=== PATIENT | male | born 1980 | race Caucasian/White ===

== ENCOUNTER 2017-05-04 19:41 | Emergency (ER) | payer MEDICAID ==
[~2017-05-04] VITALS: Ht 188 cm; Wt 95.3 kg
[~2017-05-04 19:41] MED LIST: ALBUTEROL-200 PUFFS/ IH; AZITHROMYC200 MG/5 M PO; NOMEDS XX; NORCO 325 MG-51 TAB PO; PREDNISONE 20MG20 MG PO; TAMIFLU 75MG CA75 MG PO; VALIUM 5MG TABLE5 MG PO
--- OUTSIDE RECORDS SUMMARY | 2017-05-04 19:47 | External Medical Summary Rpt | CCD ---
Author Author , TODD BROOKS Address Unknown Phone [email or web address] Providers Care Endoscopy Specialty Technician Name Role Phone CANDICE, CANDICE Unavailable Unavailable ELUVATHINGAL, Unavailable Unavailable ELUVATHINGAL SANTANA, SANTANA Unavailable Unavailable MERNA JESSE, MERNA Unavailable Unavailable [facility] Un[facility], Unavailable Unavailable [facility] MIRANDA, MIRANDA Unavailable Unavailable COWART, COWART Unavailable Unavailable MOHSEN, MOHSEN Unavailable Unavailable [facility] Un[facility] [place] [facility] [place] Unavailable Unavailable [facility], [facility], [facility], [facility] Purpose Continuity of Care Document - 05-02-2015 through 2016 Problems Code Diagnosis DOS Provider Status [id number] UNSPECIFIED 12-19-2016 [place] [facility] [place] [facility] PHY R001 BRADYCARDIA 12-19-2016 [facility] [place] PHY R002 PALPITATION 12-19-2016 [facility] PHY R079 CHEST PAIN 12-19-2016 [facility] PHY R110 NAUSEA 12-19-2016 [facility] E785 HYPERLIPIDE 12-18-2016 [facility], [facility] G4733 OBSTRUCTIVE 12-18-2016 [facility], PEDIATRIC [facility] [id number] UNSPECIFIED 12-18-2016 [facility] R0789 OTHER CHEST 12-18-2016 [facility] PAIN [facility], [facility] Z8249 FAMILY HX 12-18-2016 [facility] ISCHEMIC [facility] HRT DZ [facility], CIRC [facility] SYSTEM [id number] PERSONAL 12-18-2016 [facility], DEPENDENCE [facility] Z880 ALLERGY 12-18-2016 [facility] [id number] ACUTE 12-08-2015 [facility] UNSPECIFIED INC J029 ACUTE 12-08-2015 [facility] INC UNSPECIFIED J040 ACUTE 12-08-2015 [facility] INC Z720 TOBACCO USE 12-08-2015 [facility] M542 CERVICALGIA 06-27-2015 [facility] G4710 HYPERSOMNIA 05-30-2015 [facility] UNSPEC[facility]IED GROUP G4719 OTHER 05-30-2015 [facility] J329 CHRONIC 05-30-2015 [facility] SINUSITIS [facility]YS[facility]IANS UNSPECIFIED GROUP R0683 SNORING 05-30-2015 [facility] [id number] OTH ALLERGY 05-30-2015 [facility] STATUS OT PHYSICIANS THAN GROUP RX&BIOLOGIC L SUBSTNC Allergies, Adverse Reactions, Alerts Clinical Alert Notifications Alert Asthma: no influenza vaccine in the last 365 days Procedures Procedure [place] [address] [facility] TROPONIN 7 [facility], NELLY [facility] ECHO 78205 [facility] TTHRC R-T 7 Y OF 2D [place] W/WOM-MOD I PHY E COMPL SPEC&COLR D MYOCARDIA 34808 [facility] ELUVATHIN L SPECT 7 Y OF GAL MULTIPLE [facility] ST[facility] PHY LIPID 05416 [facility] PANEL 7 [facility], [facility] LLC BLOOD 35083 [facility] COUNT 7 [facility] COMPLETE [facility], AUTOMATED [facility] LLC ECG 45943 [facility] ROUTINE 7 Y OF ECG [place] W/LEAST I PHY 12 LDS I&R ONLY OBSERVATI 47319 [facility] ON CARE 7 Y OF DISCHARGE [facility] PHY MANAGEMEN T TECHNETIU A9502 [facility] M TC-99M 7 [facility] TETROFOSM [facility], IN DX PER [facility] STUDY DOSE INJECTION J16[address] ENOXAPARI [facility], N SODIUM [facility] 10 MG ECG 73926 [facility] ROUTINE [address] [place] [address] ECG [facility], W/LEAST [facility] 12 LDS TRCG ONLY W/O I&R CV STRS 76341 [facility] TST 7 [facility] XERS&/OR [facility], RX CONT LLC LLC ECG TRCG ONLY STERIL A4216 [facility] WATER 7 [facility] SALINE & [facility], OR DXT [facility] LLC DILUENT/F LUSH 10 ML COLLECTIO 11739 [facility] N VENOUS 7 [facility] BLOOD [facility], VENIPUNCT [facility] LLC [facility] G0378 [facility] OBSERVATI 7 DAY[facility] DAY[facility] ON [facility], SERVICE [facility] PER HOUR HOSPITAL G0378 [facility] OBSERVATI 7 DAY[facility] DAY[facility] ON [facility], SERVICE [facility] PER HOUR COLLECTIO 68665 [facility] N VENOUS 7 DAY[facility] DAY[facility] BLOOD [facility], VENIPUNCT [facility] LLC URE STERIL A4216 [facility] WATER 7 [place] SALINE & [facility], OR DXT [facility] DILUENT/F LUSH 10 ML URNLS DIP [address]53 [place] [address] [place] STICK/TAB [facility], LET RGNT [facility] AUTO W/[place] [address] [facility] FREE 7 DAY[facility] DAY[facility] THYROXINE [facility], [facility] [address] [facility] THYROID 7 [facility] STIMULATI [facility], NG [facility] LLC HORMONE TSH INFUSION J7030 [facility] NORMAL 7 DAY[place] DAY[place] SALINE [facility], SOLUTION [facility] LLC 1000 CC ECG 96165 [facility] ROUTINE 7 Y OF ECG [place] W/LEAST I PHY 12 LDS I&R ONLY BASIC 46531 [facility] METABOLIC 7 DAY[facility] PANEL [facility], [place] [address] [facility] TROPONIN 7 [place] QUANTITAT [facility], NELLY LLC LLC BLOOD 64005 [facility] COUNT 7 [facility] COMPLETE [facility], AUTO&AUTO LLC LLC DIFRNTL WBC RADIOLOGI 99606 [facility] C EXAM 7 Y OF CHEST 2 [place] VIEWS I PHY FRONTAL&L ATERAL INITIAL 51139 [facility] OBSERVATI 7 Y OF ON [place] CARE/DAY I PHY 70 MINUTES E-STIM G0283 [facility] 1/> AREAS 5 MEM HOS[facility]OS[facility] OTH THAN INC INC WND CARE PART TX PLAN APPLICATI 05506 [facility] ON 5 [facility] H[facility] MEM [facility]OS[facility] MODALITY INC INC 1/> AREAS HOT/COLD PACKS APPL 68703 [facility] MODALITY 5 MEM HOSP MEM HOSP 1/> AREAS INC INC ULTRASOUN D EA 15 MIN APPL 43528 [facility] MODALITY 5 MEM HOSP MEM HOSP 1/> AREAS INC INC 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 L APPLICATI 95680 [facility] ON 5 MEM H[facility] MEM [facility]OSP MODALITY INC INC 1/> AREAS HOT/COLD PACKS E-STIM G0283 GEO GEO 1/> AREAS 5 MEM HOSP MEM HOSP OTH THAN INC INC WND CARE PART TX PLAN APPLICATI 02586 [facility] ON 5 MEM HOS[facility] MEM HOSP MODALITY INC INC 1/> AREAS HOT/COLD PACKS E-STIM G0283 [facility] 1/> AREAS 5 MEM HOS[facility] MEM HOSP OTH THAN INC INC WND CARE PART TX PLAN APPL 62966 GEO GEO MODALITY 5 MEM HOSP MEM HOSP 1/> AREAS INC INC 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 L THERAPEUT 03919 GEO [facility] IC PX 1/> 5 MEM HOS[facility] MEM HOSP AREAS INC INC EACH 15 MIN EXERCISES RADEX 75628 [facility] SPINE 5 MEM H[facility] CERVICAL INC INC 4 OR 5 VIEWS Encounters Encounter Start End Date Code Location Performer Type Date [facility] [place] [address] 7 [facility] EMERGENCY 38249 [facility] DEPT 7 7 Y OF VISIT [facility] I PHY SEVERITY& THREAT [facility] GEO - 6 6 [facility] 41749 [facility] 6 6 [facility] LOW/MODER SEVERITY OFFICE 27863 [facility] 5 5 PHYSICIAN JESSE T VISIT S GROUP 10 MINUTES OFFICE 84742 [facility] OUTPATIEN 5 5 PHYSICIAN JESSE T VISIT S GROUP 10 MINUTES OFFICE 14929 [facility] OUTPATIEN 5 5 PHYSICIAN JESSE T VISIT S GROUP 10 MINUTES HOSPITAL GEO - 5 5 MEM [facility] OUTPATIEN INC T HOSPITAL GEO - 5 5 [facility] OUTPATIEN INC T [facility] 13368 [facility] 5 PHYSICIAN JESSE T NEW 30 S GROUP MINUTES EMERGENCY 80423 [facility] DEPT 5 5 PHYSICIAN JESSE VISIT S, [facility] HIGH SEVERITY& THREAT [facility] GEO - 5 5 MEM HOSP OUTPATIEN INC T EMERGENCY 60849 GEO 5 5 MEM HOSP [facility] INC T VISIT LOW/MODER SEVERITY
--- OUTSIDE RECORDS SUMMARY | 2017-05-04 19:47 | External Medical Summary Rpt | CCD ---
Author Author , TODD BROOKS Address Unknown Phone [email or web address] Care Team Providers Care Enforcement Officer Name Role Phone CANDICE, CANDICE Unavailable Unavailable ELUVATHINGAL, Unavailable Unavailable ELUVATHINGAL SANTANA, SANTANA Unavailable Unavailable MERNA JESSE, MERNA Unavailable Unavailable [facility] Un[facility] INC, [facility], Unavailable Unavailable [facility] MIRANDA, MIRANDA Unavailable Unavailable COWART, COWART Unavailable Unavailable MOHSEN, MOHSEN Unavailable Unavailable [facility] Unavailable [place] [facility], [facility] [place] Unavailable Unavailable [facility], [facility], [facility], [facility] Purpose Continuity of Care Document - 05-02-2015 through 2016 Problems Code Diagnosis DOS Provider Status [id number] UNSPECIFIED 12-19-2016 [place] [facility] [place] N PHY R001 BRADYCARDIA 12-19-2016 [facility] PHY R002 PALPITATION 12-19-2016 [facility] PHY R079 CHEST PAIN 12-19-2016 [facility] PHY R110 NAUSEA 12-19-2016 [facility] PHY E785 HYPERLIPIDE 12-18-2016 [facility], [facility] G4733 OBSTRUCTIVE 12-18-2016 [facility], PEDIATRIC [facility] [id number] UNSPECIFIED 12-18-2016 [facility] R0789 OTHER CHEST 12-18-2016 [facility] PAIN [facility], [facility] Z8249 FAMILY HX 12-18-2016 [facility] ISCHEMIC [facility] HRT DZ [facility], CIRC [facility] SYSTEM [id number] PERSONAL 12-18-2016 [facility], DEPENDENCE [facility] Z880 ALLERGY 12-18-2016 [facility], [facility] J0190 ACUTE 12-08-2015 [facility] UNSPECIFIED INC J029 ACUTE 12-08-2015 [facility] INC UNSPECIFIED J040 ACUTE 12-08-2015 [facility] INC Z720 TOBACCO USE 12-08-2015 [facility] INC M542 CERVICALGIA 06-27-2015 [facility] G4710 HYPERSOMNIA 05-30-2015 [facility] UNSPECIFIED GROUP G4719 OTHER 05-30-2015 [facility] HYPERS[facility]ANS GROUP J329 CHRONIC 05-30-2015 [facility] SINUSITIS PHYSICIANS UNSPECIFIED GROUP R0683 SNORING 05-30-2015 [facility] Z9109 OTH ALLERGY 05-30-2015 [facility] STATUS OT PHYSICIANS THAN GROUP RX&BIOLOGIC L SUBSTNC Allergies, Adverse Reactions, Alerts Clinical Alert Notifications Alert Asthma: no influenza vaccine in the last 365 days Procedures Procedure DOS [place] [address] [facility] TROPONIN 7 [facility], NELLY [facility] ECHO 65420 [facility] TTHRC R-T 7 Y OF 2D [place] W/WOM-MOD I PHY E COMPL SPEC&COLR D MYOCARDIA 81243 [facility] ELUVATHIN L SPECT 7 Y OF GAL MULTIPLE [facility] PHY LIPID 42175 [facility] PANEL 7 [facility], [facility] LLC BLOOD 14875 [facility] COUNT 7 [facility] COMPLETE [facility], AUTOMATED [facility] LLC ECG 54669 [facility] ROUTINE 7 Y OF ECG [place] W/LEAST I PHY 12 LDS I&R ONLY OBSERVATI 19234 [facility] ON CARE 7 Y [facility] DISCHARGE [facility] PH[facility] MANAGEMEN T TECHNETIU A9502 [facility] M TC-99M 7 [facility] TETROFOSM [facility], IN DX PER [facility] STUDY DOSE INJECTION J16[address] [facility], N SODIUM [facility] 10 MG ECG 72349 [facility] ROUTINE [address] [place] [address] [facility], W/LEAST [facility] 12 LDS TRCG ONLY W/O I&R CV STRS 05891 [facility] TST 7 [facility] XERS&/OR [facility], RX [facility] LLC ECG TRCG ONLY STERIL A4216 [facility] WATER 7 DAY[facility] DAY[facility]NA SALINE & [facility], OR DXT [facility] LLC DILUENT/F LUSH 10 ML COLLECTIO 58554 [facility] N VENOUS 7 DAY[place] [address]LOOD [facility], VENIPUNCT [facility] LLC URE HOSPITAL G0378 [facility] OBSERVATI [address] [facility], SERVICE [facility] PER HOUR HOSPITAL G0378 [facility] OBSERVATI [address] [facility], SERVICE [facility] PER HOUR COLLECTIO 20214 [facility] N VENOUS [address] [facility], VENIPUNCT [facility] LLC URE STERIL A4216 [facility] WATER 7 DAY[place]NA DAYANNA SALINE & [facility], OR DXT [facility] DILUENT/F LUSH 10 ML URNLS DIP [address]1253 [place] [address] [place] DAYANNA STICK/TAB [facility], LET RGNT [facility] AUTO W/[place] [address] [facility] FREE [address] [facility], [facility] [place] [address] [facility] THYROID [address] [facility], NG [facility] LLC HORMONE TSH INFUSION J7030 [facility] NORMAL [address] [facility], SOLUTION [facility] LLC 1000 CC ECG 38343 [facility] ROUTINE 7 Y OF ECG [place] W/LEAST I PHY 12 LDS I&R ONLY BASIC 04402 [facility] METABOLIC [address] [facility], [place] [address] [facility] TROPONIN 7 [place] QUANTITAT [facility], NELLY LLC LLC BLOOD 14023 [facility] COUNT [address] [facility], AUTO&AUTO LLC LLC DIFRNTL WBC RADIOLOGI 32594 [facility] C EXAM 7 Y OF CHEST 2 [place] VIEWS I PHY FRONTAL&L ATERAL INITIAL [address] [facility] OBSERVATI 7 Y OF ON [place] CARE/DAY I PHY 70 MINUTES E-STIM G0283 [facility] 1/> AREAS 5 [facility] OTH THAN INC INC WND CARE PART TX PLAN APPLICATI 52160 [facility] ON 5 [facility] MODALITY INC INC 1/> AREAS HOT/COLD PACKS APPL 77207 [facility]O GE[facility] MODALITY 5 MEM H[facility] MEM [facility]OSP 1/> AREAS INC INC ULTRASOUN D EA 15 MIN APPL 45429 [facility] MODALITY 5 MEM HOS[facility] MEM HOSP 1/> AREAS INC INC 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 L APPLICATI 49305 [facility] ON 5 MEM H[facility]OSP MODALITY INC INC 1/> AREAS HOT/COLD PACKS E-STIM G0283 GEO GEO 1/> AREAS 5 MEM HOSP MEM HOSP OTH THAN INC INC WND CARE PART TX PLAN APPLICATI 97939 [facility] ON 5 MEM HOS[facility]OSP MODALITY INC INC 1/> AREAS HOT/COLD PACKS E-STIM G0283 [facility] 1/> AREAS 5 MEM HOS[facility] MEM HOSP OTH THAN INC INC WND CARE PART TX PLAN APPL 17345 GEO GEO MODALITY 5 MEM HOSP [facility] HOSP 1/> AREAS INC INC 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 L THERAPEUT 00478 GEO GU[facility] IC PX 1/> 5 [facility] AREAS INC INC EACH 15 MIN EXERCISES RADEX 44982 [facility] SPINE 5 [facility] H[facility] CERVICAL INC INC 4 OR 5 VIEWS Encounters Encounter Start End Date Code Location Performer Type Date [facility] [place] [address] 7 [facility] EMERGENCY 63833 [facility] DEPT 7 7 Y OF VISIT [facility] I PHY SEVERITY& THREAT [facility] GEO - 6 6 [facility] 83259 [facility] 6 6 [facility] T VISIT LOW/MODER SEVERITY OFFICE 71037 [facility] 5 5 PHYSICIAN JESSE T VISIT S GROUP 10 MINUTES OFFICE 87405 [facility] OUTPATIEN 5 5 PHYSICIAN JESSE T VISIT S GROUP 10 MINUTES OFFICE 05466 [facility] OUTPATIEN 5 5 PHYSICIAN JESSE T VISIT S GROUP 10 MINUTES HOSPITAL GEO - 5 5 MEM [facility] OUTPATIEN INC T HOSPITAL GEO - 5 5 [facility] OUTPATIEN INC T OFFICE 11803 [facility] 5 5 PHYSICIAN JESSE T NEW 30 S GROUP MINUTES EMERGENCY 67146 [facility] DEPT 5 5 PHYSICIAN JESSE VISIT S, [facility] HIGH SEVERITY& THREAT [facility] GEO - 5 5 MEM HOSP OUTPATIEN INC T EMERGENCY 15594 GEO 5 5 [facility] INC T VISIT LOW/MODER SEVERITY
--- OUTSIDE RECORDS SUMMARY | 2017-05-04 19:48 | External Medical Summary Rpt | CCD ---
Demographics Preferred Language [place] Marital Status Unknown Jain Affiliation Unknown Race Unknown Ethnic Group Unknown Author Author , TODD BROOKS Address Unknown Phone Immunization No patient found.
--- OUTSIDE RECORDS SUMMARY | 2017-05-04 19:48 | External Medical Summary Rpt | CCD ---
Author Author , TODD BROOKS Address Unknown Phone [email or web address] Care Team Providers Care Tomographic Tech Name Role Phone CANDICE, CANDICE Unavailable Unavailable SANTANA, SANTANA Unavailable Unavailable MERNA JESSE, MERNA Unavailable Unavailable [facility] Un[facility] Unavailable INC, [facility], Unavailable Unavailable [facility] MIRANDA, MIRANDA Unavailable Unavailable MOHSEN, MOHSEN Unavailable Unavailable [facility], [facility], [facility], [facility] Purpose Continuity of Care Document - 05-02-2015 through 2016 Problems Code Diagnosis DOS Provider Status [id number] UNSPECIFIED 12-19-2016 [facility]IAL [facility]RILL[facility] [place] N PHY R001 BRADYCARDIA 12-19-2016 [facility] PHY R002 PALPITATION 12-19-2016 [facility] PHY R079 CHEST PAIN 12-19-2016 [facility] R110 NAUSEA 12-19-2016 [facility] E785 HYPERLIPIDE 12-18-2016 [facility] G4733 OBSTRUCTIVE 12-18-2016 [facility], PEDIATRIC [facility] [id number] UNSPECIFIED 12-18-2016 [facility] R0789 OTHER CHEST 12-18-2016 [facility] Z8249 FAMILY HX 12-18-2016 [facility] ISCHEMIC [facility] HRT [facility], CIRC [facility] SYSTEM [id number] PERSONAL 12-18-2016 [facility], DEPENDENCE [facility] Z880 ALLERGY 12-18-2016 [facility] STATUS TO [facility], [facility] J0190 ACUTE 12-08-2015 [facility] UNSPECIFIED INC J029 ACUTE 12-08-2015 [facility] UNSPECIFIED J040 ACUTE 12-08-2015 [facility] Z720 TOBACCO USE 12-08-2015 [facility] M542 CERVICALGIA 06-27-2015 [facility] G4710 HYPERSOMNIA 05-30-2015 [facility] UNSPECIFIED GROUP G4719 OTHER 05-30-2015 [facility] HYPERSOMNIA [facility] GROUP J329 CHRONIC 05-30-2015 [facility] SINUSITIS PHYSICIANS UNSPECIFIED GROUP R0683 SNORING 05-30-2015 [facility] [id number] OTH ALLERGY 05-30-2015 [facility] STATUS OT PHYSICIANS THAN GROUP RX&BIOLOGIC L SUBSTNC Procedures Procedure DOS Code Location Performer Comment OBSERVATI 42493 [facility] ON CARE 7 [facility] PHY MANAG[facility]EN T TECHNETIU A9502 [facility] TC-99M 7 [facility] [place] DX PER [facility] STUDY DOSE COLLECTIO 39203 [facility] N VENOUS 7 [facility] BLOOD [facility], VENIPUNCT [facility] LLC URE STERIL A4216 [facility] WATER 7 [facility] SALINE & [facility], OR DXT [facility] LLC DILUENT/F LUSH 10 ML ECG 04590 [facility] ROUTINE 7 [facility] ECG [facility], W/LEAST LLC LLC 12 LDS TRCG ONLY W/O I&R CV STRS 30752 [facility] TST 7 [facility] XERS&/OR [facility], RX CONT LLC LLC ECG TRCG ONLY MYOCARDIA 12149 [facility] L SPECT 7 [facility], STUDIES LLC LLC LIPID 73777 [facility] PANEL 7 [facility], LLC LLC INJECTION J1650 [address] ENOXAPARI [facility], N SODIUM [facility] LLC [facility] G0378 [facility] OBSERVATI 7 [facility] ON [facility], SERVICE LLC LLC PER HOUR ECG 90950 [facility] MIRANDA ROUTINE 7 Y OF ECG [facility] W/LEAST I PHY 12 LDS I&R ONLY ECHO 83162 [facility] TTHRC R-T 7 [facility] 2D [facility], W/WOM-MOD LLC LLC E COMPL SPEC&[place] [address] [facility] TROPONIN 7 DAYANNA DAYANNA QUANTITAT [facility], NELLY LLC LLC BLOOD 67968 [facility] COUNT 7 DAYANNA DAYANNA COMPLETE [facility], AUTOMATED LLC LLC BLOOD 18008 [facility] COUNT 7 DAYANNA DAYANNA COMPLETE [facility], AUTO&AUTO [facility] [place] [address] [facility] TROPONIN 7 DAYANNA DAYANNA QUANTITAT [facility], NELLY [facility] LLC STERIL A4216 [facility] WATER 7 DAYANNA DAYANNA SALINE & [facility], OR DXT [facility] LLC DILUENT/F LUSH 10 ML ECG 88684 [facility] ROUTINE 7 Y OF ECG [facility] W/LEAST I PHY 12 LDS I&R ONLY RADIOLOGI 90959 [facility] C EXAM 7 DAYANNA DAYANNA CHEST 2 [facility], VIEWS [facility] LLC FRONTAL&L ATERAL URNLS DIP [address]48 [place] [address] DAYANNA DAYANNA STICK/TAB [facility], LET RGNT [facility] LLC AUTO W/[place] [address] [facility] FREE 7 DAYANNA DAYANNA THYROXINE [facility], [place] [address] [facility] THYROID 7 DAYANNA DAYANNA STIMULATI [facility], NG [facility] LLC HORMONE TSH [facility] G0378 [facility] OBSERVATI 7 DAYANNA DAYANNA ON [facility], SERVICE [facility] LLC PER HOUR INITIAL 71697 [facility] 7 Y OF ON [facility] CARE/DAY I PHY 70 MINUTES COLLECTIO 53967 [facility] N VENOUS 7 DAYANNA DAYANNA BLOOD [facility], VENIPUNCT LLC LLC URE INFUSION J7030 [facility] NORMAL 7 DAYANNA DAYANNA SALINE [facility], SOLUTION LLC LLC 1000 CC BASIC 83020 [facility] METABOLIC 7 DAYANNA DAYANNA PANEL [facility], CALCIUM LLC LLC TOTAL APPLICATI 05359 [facility] ON 5 [facility] MODALITY INC INC 1/> AREAS HOT/COLD PACKS APPL 61594 [facility] MODALITY 5 [facility] 1/> AREAS INC INC ULTRASOUN D EA 15 MIN E-STIM G0283 [facility] 1/> AREAS 5 [facility] MEM HOSP OTH THAN INC INC WND CARE PART TX PLAN E-STIM G0283 [facility] 1/> AREAS 5 [facility] MEM HOSP OTH THAN INC INC WND CARE PART TX PLAN APPLICATI 69724 [facility] ON 5 [facility] MODALITY INC INC 1/> AREAS HOT/COLD PACKS APPL 37163 [facility] MODALITY 5 [facility] MEM [facility]OS[facility] 1/> AREAS INC INC 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 L APPLICATI 31268 [facility] ON 5 [facility] MODALITY INC INC 1/> AREAS HOT/COLD PACKS APPL 66848 [facility] MODALITY 5 [facility] 1/> AREAS INC INC 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 L THERAPEUT 00731 [facility] IC PX 1/> 5 [facility]OS[facility] AREAS INC INC EACH 15 MIN EXERCISES E-STIM G0283 [facility] 1/> AREAS 5 [facility] MEM HOSP OTH THAN INC INC WND CARE PART TX PLAN RADEX 94766 [facility] SPINE 5 [facility] CERVICAL INC INC 4 OR 5 VIEWS Encounters Encounter Start End Date Code Location Performer Type Date EMERGENCY 63144 [facility] 7 7 [facility] SEVERITY& THREAT [facility] [place] [address] 7 [facility] EMERGENCY 64466 GEO 6 6 [facility] DEPARTMEN INC T VISIT LOW/MODER SEVERITY HOSPITAL GEO - 6 6 [facility] OUTPATIEN INC T OFFICE 43146 [facility] MERNA OUTPATIEN 5 5 PHYSICIAN JESSE T VISIT S GROUP 10 MINUTES OFFICE 84123 [facility] MERNA OUTPATIEN 5 5 PHYSICIAN JESSE T VISIT S GROUP 10 MINUTES OFFICE 10366 [facility] MERNA OUTPATIEN 5 5 PHYSICIAN JESSE T VISIT S GROUP 10 MINUTES HOSPITAL GEO - 5 5 [facility] OUTPATIEN INC HOSPITAL GEO - 5 5 [facility] OUTPATIEN INC T OFFICE 10591 [facility] 5 5 PHYSICIAN JESSE T NEW 30 S GROUP MINUTES EMERGENCY 30525 [facility] DEPT 5 5 PHYSICIAN JESSE VISIT S, [facility] HIGH SEVERITY& THREAT [facility] GEO - 5 5 [facility] OUTPATIEN INC T EMERGENCY 39127 GEO 5 5 [facility] T VISIT LOW/MODER SEVERITY
--- OUTSIDE RECORDS SUMMARY | 2017-05-04 19:48 | External Medical Summary Rpt | CCD ---
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 Name Role Phone CANDICE, CANDICE Unavailable Unavailable SANTANA, SANTANA Unavailable Unavailable MERNA JESSE, MERNA Unavailable Unavailable [facility] Un[facility] INC, [facility], Unavailable Unavailable [facility] MIRANDA, MIRANDA Unavailable Unavailable MOHSEN, MOHSEN Unavailable Unavailable [facility], [facility], [facility], [facility] Purpose Continuity of Care Document - 05-02-2015 through 2016 Problems Code Diagnosis DOS Provider Status [id number] UNSPECIFIED 12-19-2016 [facility]IAL [facility] F[facility] N PHY R001 BRADYCARDIA 12-19-2016 [facility] PHY R002 PALPITATION 12-19-2016 [facility] PHY R079 CHEST PAIN 12-19-2016 [facility] R110 NAUSEA 12-19-2016 [facility] E785 HYPERLIPIDE 12-18-2016 [facility] G4733 OBSTRUCTIVE 12-18-2016 [facility] PEDIATRIC [facility] [id number] UNSPECIFIED 12-18-2016 [facility] R0789 OTHER CHEST 12-18-2016 [facility] Z8249 FAMILY HX 12-18-2016 [facility] ISCHEMIC [facility] HRT [facility], CIRC [facility] SYSTEM [id number] PERSONAL 12-18-2016 [facility] DE[facility]ENCE [facility] Z880 ALLERGY 12-18-2016 [facility] STATUS TO [facility], [facility] J0190 ACUTE 12-08-2015 [facility] UNSPECIFIED INC J029 ACUTE 12-08-2015 [facility] INC UNSPECIFIED J040 ACUTE 12-08-2015 [facility] Z720 TOBACCO USE 12-08-2015 [facility] M542 CERVICALGIA 06-27-2015 [facility] G4710 HYPERSOMNIA 05-30-2015 [facility] UNSPECIFIED GROUP G4719 OTHER 05-30-2015 [facility] HYPERSOMNIA [facility] GROUP J329 CHRONIC 05-30-2015 [facility] SINUSITIS PHYSICIANS UNSPECIFIED GROUP R0683 SNORING 05-30-2015 [facility] Z9109 OTH ALLERGY 05-30-2015 [facility] STATUS OT PHYSICIANS THAN GROUP RX&BIOLOGIC L SUBSTNC Procedures Procedure DOS Code Location Performer Comment OBSERVATI 20752 [facility] ON CARE 7 Y [facility]CHARGE [facility] PHY MANAGEMEN T TECHNETIU A9502 [facility] TC-99M 7 [facility], [place] DX PER [facility] STUDY DOSE COLLECTIO 02205 [facility] N VENOUS 7 [facility] BLOOD [facility], VENIPUNCT [facility] LLC URE STERIL A4216 [facility] WATER 7 [facility] SALINE & [facility], OR DXT [facility] LLC DILUENT/F LUSH 10 ML ECG 08036 [facility] ROUTINE 7 [facility] ECG [facility], W/LEAST LLC LLC 12 LDS TRCG ONLY W/O I&R CV STRS 32141 [facility] TST 7 [facility] XERS&/OR [facility], RX CONT LLC LLC ECG TRCG ONLY MYOCARDIA 87749 [facility] L SPECT 7 [facility], STUDIES LLC LLC LIPID 81829 [facility] PANEL 7 [facility], LLC LLC INJECTION J1650 [address] ENOXAPARI [facility], N SODIUM LLC LLC 10 [facility] G0378 [facility] OBSERVATI 7 [facility] ON [facility], SERVICE LLC LLC PER HOUR ECG 27394 [facility] MIRANDA ROUTINE 7 Y OF ECG [facility] W/LEAST I PHY 12 LDS I&R ONLY ECHO 20202 [facility] TTHRC R-T 7 [facility] 2D [facility], W/WOM-MOD LLC LLC E COMPL SPEC&[place] [address] [facility] TROPONIN 7 DAYANNA DAYANNA QUANTITAT [facility], NELLY LLC LLC BLOOD 88837 [facility] COUNT 7 DAYANNA DAYANNA COMPLETE [facility], AUTOMATED LLC LLC BLOOD 07424 [facility] COUNT 7 DAYANNA DAYANNA COMPLETE [facility] AUTO&AUTO [facility] [place] [address] [facility] TROPONIN 7 DAYANNA DAYANNA QUANTITAT [facility], NELLY [facility] LLC STERIL A4216 [facility] WATER 7 DAYANNA DAYANNA SALINE & [facility], OR DXT [facility] LLC DILUENT/F LUSH 10 ML ECG 31278 [facility] ROUTINE 7 Y OF ECG [facility] W/LEAST I PHY 12 LDS I&R ONLY RADIOLOGI 67500 [facility] C EXAM 7 DAYANNA DAYANNA CHEST 2 [facility], VIEWS [facility] LLC FRONTAL&L ATERAL URNLS DIP 06642 [place] [address] DAYANNA DAYANNA STICK/TAB [facility], LET RGNT [facility] LLC AUTO W/[place] [address] [facility] FREE 7 DAYANNA DAYANNA THYROXINE [facility], [place] [address] [facility] THYROID 7 DAYANNA DAYANNA STIMULATI [facility], NG [facility] LLC HORMONE TSH [facility] G0378 [facility] OBSERVATI 7 DAYANNA DAYANNA ON [facility], SERVICE [facility] LLC PER HOUR INITIAL 23666 [facility] OBS[facility] 7 Y OF ON [facility] CARE/DAY I PHY 70 MINUTES COLLECTIO 51688 [facility] N VENOUS 7 DAYANNA DAYANNA BLOOD [facility], VENIPUNCT LLC LLC URE INFUSION J7030 [facility] NORMAL 7 DAYANNA DAYANNA SALINE [facility], SOLUTION LLC LLC 1000 CC BASIC 79963 [facility] METABOLIC 7 DAYANNA DAYANNA PANEL [facility], CALCIUM LLC LLC TOTAL APPLICATI 51336 [facility] ON 5 [facility] MODALITY INC INC 1/> AREAS HOT/COLD PACKS APPL 21826 [facility] MODALITY 5 [facility] 1/> AREAS INC INC ULTRASOUN D EA 15 MIN E-STIM G0283 GEO GEO 1/> AREAS 5 [facility]OS[facility] OTH THAN INC INC WND CARE PART TX PLAN E-STIM G0283 GEO GEO 1/> AREAS 5 [facility] MEM HOSP OTH THAN INC INC WND CARE PART TX PLAN APPLICATI 39769 [facility] ON 5 [facility] MODALITY INC INC 1/> AREAS HOT/COLD PACKS APPL 31453 [facility] MODALITY 5 [facility] 1/> AREAS INC INC 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 L APPLICATI 56697 [facility] ON 5 [facility] MODALITY INC INC 1/> AREAS HOT/COLD PACKS APPL 34778 [facility] MODALITY 5 [facility] 1/> AREAS INC INC 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 L THERAPEUT 74273 [facility] IC PX 1/> 5 [facility] AREAS INC INC EACH 15 MIN EXERCISES E-STIM G0283 [facility] 1/> AREAS 5 [facility]OS[facility] OTH THAN INC INC WND CARE PART TX PLAN RADEX 44241 [facility] SPINE 5 [facility] CERVICAL INC INC 4 OR 5 VIEWS Encounters Encounter Start End Date Code Location Performer Type Date [facility] 68533 [facility] SEVERITY& THREAT [facility] [place] [address] 7 [facility] EMERGENCY 25388 GEO 6 6 MEM [facility] DEPARTMEN INC T VISIT LOW/MODER SEVERITY HOSPITAL GEO - 6 6 [facility] OUTPATIEN INC T OFFICE 99014 [facility] MERNA OUTPATIEN 5 5 PHYSICIAN JESSE T VISIT S GROUP 10 MINUTES OFFICE 92068 [facility] MERNA OUTPATIEN 5 5 PHYSICIAN JESSE T VISIT S GROUP 10 MINUTES OFFICE 19580 [facility] MERNA OUTPATIEN 5 5 PHYSICIAN JESSE T VISIT S GROUP 10 MINUTES HOSPITAL GEO - 5 5 [facility] OUTPAT[facility] HOSPITAL GEO - 5 5 [facility] OUTPATIEN INC T OFFICE 87294 [facility] 5 5 PHYSICIAN JESSE T NEW 30 S GROUP MINUTES EMERGENCY 04102 [facility] DEPT 5 5 PHYSICIAN JESSE VISIT S, [facility] HIGH SEVERITY& THREAT [facility] GEO - 5 5 [facility] OUTPATIEN INC T EMERGENCY 68956 GE[facility] 5 5 [facility] T VISIT LOW/MODER SEVERITY
--- OUTSIDE RECORDS SUMMARY | 2017-05-04 19:48 | External Medical Summary Rpt | CCD ---
Demographics Preferred Language Burmese Marital Status Unknown Mosque Affiliation Unknown Race Unknown Ethnic Group Unknown Author Author , TODD BROOKS Address Unknown Phone Immunization No patient found.
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
[2017-05-04] MEDS ORDERED: NAPROSYN 500MG500 MG PO (21:04)
[2017-05-04] MEDS ORDERED: FLEXERIL10 MG PO (21:04)
[2017-05-04 21:10] VITALS: BP 140/99
--- NOTE | 2017-05-04 22:20 | RADIOLOGY REPORT PS360 ---
LUMBAR SPINE 5 VIEWS HISTORY: low back pain since lifting 80lb concrete Friday, 05/02 Patient Age: 36 years: Male Ordering Physician: FROY PHIPPS APRN TECHNIQUE: 5 view lumbar spine series COMPARISON : FINDINGS Vertebral bodies are intact with no compression fractures or lesion. L5/S1: Borderline/- mild disc space narrowing . Other disc spaces well-maintained unremarkable. No spondylolysis nor listhesis evident. Pedicles transverse processes SI joints unremarkable. Only scant anterior marginal osteophyte formation L3/4. IMPRESSION: 1. Lumbar spine intact with no acute or prominent findings. . 2. Only note borderline-mild disc space narrowing At L5/S1 level
== END 2017-05-04 21:11 | disposition home or self-care (01) ==
LOC: UTC 19:41
DX: M54.5 Low back pain (principal); Z88.0 Allergy status to penicillin; J45.909 Unspecified asthma, uncomplicated; F41.9 Anxiety disorder, unspecified; Z87.891 Personal history of nicotine dependence; M50.30 Other cervical disc degeneration, unspecified cervical region